=== PATIENT | male | born 1960 | race Caucasian/White ===

== ENCOUNTER 2018-10-17 07:10 | Day surgery (SDC) | payer OTHER ==
[2018-10-17 08:27] LABS: POTASSIUM 5.4 mmol/L (3.5-5.1)
[2018-10-17] MEDS ORDERED: HEPARIN 1000 UNITS/ML 10 ML INJ (08:41)
[2018-10-17] MEDS ORDERED: MIDAZOLAM 1 MG/ML 2 ML INJ (08:41)
[2018-10-17] MEDS ORDERED: LIDOCAINE 1% (MDV) 20 ML INJ ×2 (08:41→08:50)
[2018-10-17] MEDS ORDERED: FENTAnyl 50 MCG/ML VIAL (08:41)
== END 2018-10-17 09:48 | disposition home or self-care (01) ==
LOC: CCL 07:10 → SDS 07:10 → CCL 09:48
DX: T82.49XA Other complication of vascular dialysis catheter, initial encounter (principal); Y82.8 Other medical devices associated with adverse incidents; Y84.1 Kidney dialysis as the cause of abnormal reaction of the patient, or of later complication, without mention of misadventure at the time of the procedure; I12.0 Hypertensive chronic kidney disease with stage 5 chronic kidney disease or end stage renal disease; N18.6 End stage renal disease
CPT/HCPCS: 36582; 84132

== ENCOUNTER 2018-11-02 10:10 | Day surgery (SDC) | payer OTHER ==
[~2018-11-02 10:10] MED LIST: LIDOCAINE 2% (SDV) 5 ML INJ
[2018-11-02] MEDS ORDERED: FENTAnyl 50 MCG/ML VIAL (12:23)
[2018-11-02] MEDS ORDERED: PROPOFOL 20 ML (12:23)
[2018-11-02] MEDS ORDERED: MIDAZOLAM 1 MG/ML 2 ML INJ (12:24)
[2018-11-02 12:28] LABS: POTASSIUM 4.3 mmol/L (3.5-5.1)
== END 2018-11-02 15:05 | disposition home or self-care (01) ==
LOC: GIL 10:10
DX: K64.8 Other hemorrhoids (principal); D12.0 Benign neoplasm of cecum; K64.4 Residual hemorrhoidal skin tags; D50.9 Iron deficiency anemia, unspecified; I12.0 Hypertensive chronic kidney disease with stage 5 chronic kidney disease or end stage renal disease; N18.6 End stage renal disease; Z99.2 Dependence on renal dialysis; Z87.891 Personal history of nicotine dependence
CPT/HCPCS: 45380; 84132; 88305

== ENCOUNTER 2018-12-12 09:26 | Day surgery (SDC) | payer OTHER ==
[2018-12-12 10:43] LABS: ADD MAN DIFF? NO
[2018-12-12 10:47] LABS: WHITE BLOOD COUNT 7.6 10^3/ul (4.8-10.8)
[2018-12-12 10:47] LABS: BASOPHIL # 0.1 10^3/ul (0.0-0.1); BASOPHILS % 1.3 % (0.0-2.0); EOSINOPHILS # 0.4 10^3/ul (0.0-0.5); EOSINOPHILS % 5.2 % (0.0-7.0); HEMATOCRIT 37.2 % (42.0-52.0); HEMOGLOBIN 11.3 g/dl (14.0-18.0); LYMPHOCYTES # 1.4 10^3/ul (0.8-2.9); LYMPHOCYTES % 18.5 % (15.0-51.0); MEAN CORPUSCULAR HEMOGLOBIN 26.6 pg (29.0-33.0); MEAN CORPUSCULAR HGB CONC 30.4 g/dl (32.0-37.0); MEAN CORPUSCULAR VOLUME 87.5 fl (82.0-101.0); MEAN PLATELET VOLUME 8.7 fl (7.4-10.4); MONOCYTE # 0.6 10^3/ul (0.3-0.9); MONOCYTES % 7.5 % (0.0-11.0); NEUTROPHILS % 66.8 % (39.0-77.0); PLATELET COUNT 335 10^3/UL (140-415); RED BLOOD COUNT 4.25 10^6/ul (4.70-6.10); RED CELL DISTRIBUTION WIDTH 17.7 % (11.5-14.5)
[2018-12-12] MEDS ORDERED: GELATIN SIZE 100 SPONGE (10:56)
[2018-12-12] MEDS ORDERED: LIDOCAINE 1% (MPF) 30 ML INJ (10:56)
[2018-12-12] MEDS ORDERED: BUPIVACAINE 0.25% (MPF) 30 ML INJ (10:56)
[2018-12-12] MEDS ORDERED: THROMBIN 5000 UNIT VIAL (10:56)
[2018-12-12] MEDS ORDERED: HEPARIN 1000 UNITS/ML 10 ML INJ (10:57)
[2018-12-12] MEDS: SOD CHLORIDE 0.9% 500 ML IV (11:00)
[2018-12-12] MEDS ORDERED: SEVOFLURANE 15 MIN (11:00)
[2018-12-12] MEDS ORDERED: PROPOFOL 200 MG INJ (11:00)
[2018-12-12] MEDS: HEPARIN 1000 UNITS/ML 10 ML INJ IRR (11:05)
[2018-12-12 11:06] LABS: INR 0.96; PROTIME 12.9 Sec (11.9-14.9)
[2018-12-12 11:07] LABS: ALANINE AMINOTRANSFERASE 11 IU/L (13-69); ALBUMIN 4.1 g/dl (3.3-4.9); ALBUMIN/GLOBULIN RATIO 1.17; ALKALINE PHOSPHATASE 119 IU/L (42-121); ANION GAP 11 (5-13); ASPARTATE AMINO TRANSFERASE 14 IU/L (15-46); BILIRUBIN,INDIRECT 0.4 mg/dl (0-1.1); BILIRUBIN,TOTAL 0.4 mg/dl (0.2-1.3); CARBON DIOXIDE 26 mmol/L (21-31); CHLORIDE 103 mmol/L (97-110); Estimated GFR 10 mL/min (>60); GLUCOSE 96 mg/dl (70-220); SODIUM 140 mmol/L (135-144); TOTAL PROTEIN 7.6 g/dl (6.1-8.1)
[2018-12-12 11:08] LABS: BLOOD UREA NITROGEN 33 mg/dl (7-20); CALCIUM 8.3 mg/dl (8.4-10.2); CREATININE 5.75 mg/dl (0.61-1.24)
[2018-12-12 11:10] LABS: POTASSIUM 5.6 mmol/L (3.5-5.1)
[2018-12-12] MEDS ORDERED: ROPIVACAINE 0.5 % 30 ML VIAL (11:12)
[2018-12-12] MEDS ORDERED: LIDOCAINE 2% (SDV) 5 ML INJ (11:12)
[2018-12-12] MEDS ORDERED: hydrALAzine 20 MG INJ IV (11:30)
[2018-12-12] MEDS ORDERED: HYDROmorphONE 1 MG/5 ML IV SYRINGE IV (11:30)
[2018-12-12] MEDS ORDERED: LABETALOL HCL 20MG INJ IV (11:30)
[2018-12-12] MEDS ORDERED: CEFAZOLIN 1 GM INJ (11:34)
[2018-12-12] MEDS ORDERED: ONDANSETRON 4 MG INJ (11:36)
[2018-12-12] MEDS ORDERED: DEXAMETHASONE 4 MG/ML 5 ML INJ (11:36)
[2018-12-12] MEDS: HYDROmorphONE 1 MG/5 ML IV SYRINGE IV ×2 (12:44→13:05)
== END 2018-12-12 14:10 | disposition home or self-care (01) ==
LOC: SDS 09:26
DX: I12.0 Hypertensive chronic kidney disease with stage 5 chronic kidney disease or end stage renal disease (principal); N18.6 End stage renal disease; D64.9 Anemia, unspecified; Z99.2 Dependence on renal dialysis; E78.5 Hyperlipidemia, unspecified
CPT/HCPCS: 36830; 71045; 80053; 85025; 85610; 85730; 93005